=== PATIENT | female | born 1970 | race Caucasian/White ===

== ENCOUNTER 2017-12-11 16:31 | Inpatient (IN) | payer MEDICAID ==
[~2017-12-11] VITALS: Ht 172.7 cm; Wt 124.9 kg
[2017-12-11] MEDS ORDERED: LAXATIVE5 MG PO (19:46)
[2017-12-11] MEDS ORDERED: CEFUROXIME250 MG PO (19:47)
[2017-12-11] MEDS ORDERED: NEURONTIN 300M300 M2 PO (19:51)
[2017-12-11] MEDS ORDERED: HYDROCODON-ACE1 EAC5 PO (19:59)
[2017-12-11] MEDS ORDERED: ZYRTEC 10 MG TA10 MG PO (20:00)
[2017-12-11] MEDS ORDERED: LASIX 40 MG TAB40 M2 PO (20:01)
[2017-12-11] MEDS ORDERED: AMITRIPTYLINE100 MG PO (20:01)
[2017-12-11] MEDS ORDERED: JANUVIA100 MG PO (20:03)
[2017-12-11] MEDS ORDERED: HUMALOG KW100 UNIT/1 SUBQ (20:03)
[2017-12-11] MEDS ORDERED: LANTUS SOL100 UNIT/1 SUBQ (20:04)
[2017-12-11] MEDS ORDERED: METFORMIN HCL500 MG PO (20:05)
[2017-12-11] MEDS ORDERED: TOPROL XL25 MG PO (20:07)
[2017-12-11] MEDS ORDERED: NASONEX17 GM NASAL (20:08)
[2017-12-11] MEDS ORDERED: SINGULAIR 10 MG10 M1 PO (20:10)
[2017-12-11] MEDS ORDERED: POTASSIUM20 PO (20:10)
[2017-12-11] MEDS ORDERED: ZANTAC 150MG T150 MG PO (20:11)
[2017-12-11] MEDS ORDERED: PROAIR RESPICL90 MCG (20:11)
[2017-12-11] MEDS ORDERED: CARAFATE 1 GM TA1 G1 PO (20:12)
[2017-12-11] MEDS ORDERED: SYMBICORT160 MCG/4. INH (20:13)
[2017-12-11] MEDS ORDERED: VITAMIN D250000 UNIT PO (20:14)
[2017-12-11 20:26] VITALS: BP 119/59
[2017-12-12 04:44] LABS: HEMATOCRIT 29.2 % (37.0-47.0); HEMOGLOBIN 9.8 gm/dL (12.0-15.0); MCH 29.4 pg (26.0-34.0); MCHC 33.6 g/dL (28.0-37.0); MCV 87.4 fL (80.0-100.0); MPV 9.1 fl. (7.2-11.1); RBC 3.34 mil/uL (4.20-5.00); RDW-CV 18.2 % (10.5-14.5)
[2017-12-12 05:00] LABS: POTASSIUM 4.6 mmol/L (3.5-5.1)
[2017-12-12 08:18] VITALS: BP 100/73
[2017-12-12 20:22] VITALS: BP 122/75
[2017-12-13 08:05] VITALS: BP 99/65
[2017-12-13 20:13] VITALS: BP 107/66
[2017-12-14 08:11] VITALS: BP 101/63
[2017-12-14 20:39] VITALS: BP 100/67
[2017-12-15 07:30] VITALS: BP 98/59
[2017-12-15 20:00] VITALS: BP 100/60
[2017-12-16 07:30] VITALS: BP 122/73
[2017-12-16 20:00] VITALS: BP 106/60
[2017-12-17 08:30] VITALS: BP 108/68
[2017-12-17 20:00] VITALS: BP 98/49
[2017-12-18 08:00] VITALS: BP 120/66
[2017-12-18 20:00] VITALS: BP 100/61
[2017-12-19 08:00] VITALS: BP 118/61
[2017-12-19 20:00] VITALS: BP 91/35
[2017-12-20 00:18] VITALS: BP 112/65
[2017-12-20 08:00] VITALS: BP 93/44
[2017-12-20 20:00] VITALS: BP 97/50
[2017-12-21 08:00] VITALS: BP 98/45
[2017-12-21 20:00] VITALS: BP 119/69
[2017-12-22 07:38] VITALS: BP 85/39
[2017-12-22 21:37] VITALS: BP 107/58
[2017-12-23 07:50] VITALS: BP 102/58
[2017-12-23 09:55] VITALS: BP 91/36
[2017-12-23 20:00] VITALS: BP 113/67
[2017-12-24 07:30] VITALS: BP 106/52
[2017-12-24 11:50] VITALS: BP 106/52
[2017-12-24 22:02] VITALS: BP 102/58
[2017-12-25 01:20] VITALS: BP 106/52; BP 95/52
[2017-12-25] MEDS ORDERED: ENOXAPARIN40 MG/0.1 SUBQ (01:47)
[2017-12-25] MEDS ORDERED: NYSTATIN100000 UNI PO (01:49)
[2017-12-25] MEDS ORDERED: CLONAZEPAM 1 MG1 M1 PO (01:52)
[2017-12-25] MEDS ORDERED: OXYCODONE HCL 55 MG PO (01:56)
[2017-12-25 08:06] VITALS: BP 95/49
[2017-12-25 08:25] VITALS: BP 95/52
[2017-12-25] MEDS ORDERED: DIFLUCAN200 MG PO (11:45)
--- NOTE | 2018-01-18 15:02 | PLAN ---
[facility] [address] [place] [address] REHAB UNIT PLAN OF CARE Name: DEONNATHAN Maria C Room: [address] IN .R.#: [id number] Admission: 12/11/17 Attend Phys: Aure Betts, DO Discharge: 12/25/17 Date of : 66 Report #: [id number] THIS REPORT FOR: //name// CC: FAM unknown Aure Betts This is a 46-year-old female admitted to inpatient rehabilitation to facilitate safe discharge home, status post acute right femoral neck fracture post-IM nailing. She does have an ongoing history of chronic opioid and benzodiazepine dependence. She has chronic pain, uncontrolled diabetes and multiple medical comorbidities. Previous level of function was modified independent to independent with activities of daily living. Current level of function is minimum to moderate assistance 1-2 depending on therapy, activity and time of day. Estimated length of stay is 12-14 days with discharge disposition to the home setting where she does live alone, but does have supportive family in the area. MEDICAL PROGNOSIS: Good. REHABILITATION PROGNOSIS: Good. Physical Therapy will see the patient 60-90 minutes per day, 5 days per week, working on upper and lower body strength, balance, coordination, navigation. Occupational Therapy will see the patient 60-90 minutes per day, 5 days per week, working on upper and lower body strength, balance, coordination, navigation, bathing, dressing, and toileting. This is an overall plan of care, may change from time to time. We will team weekly and make changes to the plan of care as needed. <ELECTRONICALLY SIGNED> By: Aure Betts DO 01/18/18 1502 1551 [id number] Betts DO /nt
--- NOTE | 2018-01-18 15:02 | D ---
[facility] [address] [place] [address] DISCHARGE SUMMARY Name: FREIDANATHAN FELIX Maria C Room: [address] IN .R.#: [id number] Admission: 12/11/17 Attend Phys: Aure Betts DO Discharge: 12/25/17 Date of : 66 Report #: [id number] THIS REPORT FOR: //name// CC: FAM unknown Aure Betts DATE OF SERVICE: 12/24/2017 DISCHARGE DIAGNOSIS: Right hip fracture, status post open reduction and internal fixation with nailing. DISCHARGE DISPOSITION: To the home setting with followup with primary care physician within 1 week, Orthopedics within 7 to 10 days and her pain management doctor as soon as possible. She will maintain on a diabetic diet. Monitor weight gain. Fall precautions, wheelchair for household and community ambulation due to weakness and difficulty with endurance. MEDICATIONS: Reviewed and reconciled by myself and are available in the MAR. She was given prescriptions for Klonopin 1 mg p.o. q. 8 hours #45, Lovenox 40 mg subcutaneous b.i.d. for 30 days, no refills unless ordered from Orthopedic Surgery, oxycodone IR 5 mg 1-2 every 6 hours as needed for breakthrough pain, #60, no refills, hydrocodone/APAP 10/325 one p.o. q. 3 hours, #90, no refills. This was the exact pain regimen she was on while inhouse and was adequate for her pain control. She did state that she had missed a pain management followup during this stay. She was admitted on 12/11/2017 and prior to that, her date of admission acutely was 12/08/2017, and the date of her surgery was 12/09/2017. DISCHARGE PHYSICAL EXAMINATION: GENERAL: Alert, oriented, in no apparent distress. VITAL SIGNS: Reviewed and are stable. HEENT: Head atraumatic, normocephalic. Pupils equal, round, reactive. ABDOMEN: Soft, nontender, nondistended. NEUROLOGIC: Cranial nerves 2-12 are grossly intact. No focal neuro deficits, 5/5 strength in bilateral upper and lower extremities. SKIN: Warm and dry. No rashes or lesions noted. <ELECTRONICALLY SIGNED> By: Aure Betts DO 01/18/18 1502 1557 [id number] Betts DO /nt
--- NOTE | 2018-01-18 15:02 | H ---
[facility] [address] [place] [address] HISTORY AND PHYSICAL Name: NATHAN CHAVARRIA Room: [address] IN [facility]#: [id number] Admission: 12/11/17 Attend Phys: Aure Betts, DO Discharge: 12/25/17 Date of : 66 Report #: [id number] THIS REPORT FOR: //name// CC: FAM unknown Aure Betts DATE OF SERVICE: 12/11/2017 HISTORY OF PRESENT ILLNESS: This is a 46-year-old female with a complex medical history admitted from [facility] with acute right femoral neck fracture, status post IM nailing. She does have ongoing chronic opiate usage and benzodiazepine dependence. She has uncontrolled diabetes and multiple medical comorbidities including morbid obesity, chronic hypoxic respiratory failure, COPD, atrial fibrillation and hypertension. No significant changes since the preadmission screening. Previous level of function was modified independent to independent with activities of daily living. Current level of function is minimum to moderate assistance 1-2 depending on therapy, activity and time of day. Estimated length of stay is 12-14 days with discharge disposition to the home setting where she lives in a house alone. She is oxygen dependent at night. ALLERGIES: ACETAZOLAMIDE, CLARITHROMYCIN, DOXYCYCLINE, LEVOFLOXACIN, NAPROXEN, , TETRACYCLINE AND TRIMETHOPRIM. MEDICATIONS: Reviewed and reconciled by myself and are available in the MAR. PAST MEDICAL HISTORY: Opioid dependence, chronic pain, dilated nonischemic congestive heart failure with an ejection fraction of 10%, uncontrolled diabetes, obstructive sleep apnea, chronic hypoxic respiratory failure, hypertension, GERD, COPD, benzodiazepine dependence. FAMILY HISTORY: Reviewed and noncontributory. SOCIAL HISTORY: She does smoke cigarettes. Occasional alcohol. Denies any illicit drug use. REVIEW OF SYSTEMS: A 14-point review of systems is done and is negative except as mentioned in HPI, specifically no fever, chest pain, shortness of breath, abdominal pain or distention. PHYSICAL EXAMINATION: GENERAL: Alert, oriented, no apparent distress. VITAL SIGNS: Reviewed and are stable. HEENT: Atraumatic, normocephalic. Pupils equal, round, reactive. ABDOMEN: Soft, nontender, nondistended. NEUROLOGIC: [place] [address] HISTORY AND PHYSICAL Name: NATHAN CHAVARRIA Room: [address] [place] [facility].#: [id number] Admission: 12/11/17 Attend Phys: Aure Betts DO Discharge: 12/25/17 Date of : 66 Report #: [id number] SKIN: Warm and dry. No rashes or lesions noted. MUSCULOSKELETAL: No clubbing, cyanosis or edema. ASSESSMENT: 1. Status post right femoral neck fracture, status post intramedullary nailing. 2. Chronic opioid and benzodiazepine dependence. 3. Chronic pain. 4. Uncontrolled diabetes. 5. Nonischemic systolic congestive heart failure with an ejection fraction 10%. 6. Chronic obstructive pulmonary disease. 7. Chronic hypoxic respiratory failure. 8. Morbid obesity. 9. Debility. 10. Atrial fibrillation. 11. Gastroesophageal reflux disease. 12. Hypertension. PLAN: 1. Admission to inpatient rehabilitation. 2. PT, OT, speech, language, case management, nursing and HIMS to make evaluations and recommendations. 3. Low endurance protocol. 4. Right lower extremity toe touch weightbearing only. 5. Hip precautions. 6. O2 2 liters per nasal cannula at night. 7. Plan of care is pending and we will team her weekly. <ELECTRONICALLY SIGNED> By: Aure Betts DO 01/18/18 1502 1549 [id number] Betts DO /nt
== END 2017-12-25 14:22 | disposition home or self-care (01) | DRG 536 ==
LOC: M.REH 16:31
PROVIDERS: ADMIT Physical Medicine & Rehabilitation
DX: S72.001A Fracture of unspecified part of neck of right femur, initial encounter for closed fracture (principal); F11.20 Opioid dependence, uncomplicated; F13.20 Sedative, hypnotic or anxiolytic dependence, uncomplicated; J96.11 Chronic respiratory failure with hypoxia; I42.0 Dilated cardiomyopathy; I50.22 Chronic systolic (congestive) heart failure; G89.29 Other chronic pain; E11.65 Type 2 diabetes mellitus with hyperglycemia; J44.9 Chronic obstructive pulmonary disease, unspecified; E66.01 Morbid (severe) obesity due to excess calories; R53.81 Other malaise; I48.91 Unspecified atrial fibrillation; G47.33 Obstructive sleep apnea (adult) (pediatric); F17.210 Nicotine dependence, cigarettes, uncomplicated; I11.0 Hypertensive heart disease with heart failure; K21.9 Gastro-esophageal reflux disease without esophagitis; Z60.2 Problems related to living alone; Z68.39 Body mass index [BMI] 39.0-39.9, adult; Z88.1 Allergy status to other antibiotic agents; Z88.8 Allergy status to other drugs, medicaments and biological substances; Z99.81 Dependence on supplemental oxygen; Z88.2 Allergy status to sulfonamides; Z79.4 Long term (current) use of insulin; Z79.899 Other long term (current) drug therapy; X58.XXXA Exposure to other specified factors, initial encounter; Y93.89 Activity, other specified; Y92.89 Other specified places as the place of occurrence of the external cause; Y99.8 Other external cause status